=== PATIENT | male | born 1995 | race Caucasian/White ===

== ENCOUNTER 2019-01-08 20:27 | Emergency (ER) | payer BC ==
[2019-01-08] MEDS ORDERED: IBUPROFEN 800 MG TABLET PO ONE (21:08)
--- NOTE | 2019-01-08 21:10 | ER Document Report ---
ED Medical Screen (RME) - General Chief Complaint: Foot Injury Stated Complaint: FOOT INJURY Time Seen by Provider: 01/08/19 21:06 Primary Care Provider: PADMA GEIGER DO [Primary Care Provider] - Follow up as needed Mode of Arrival: Wheelchair Information source: Patient Notes: Patient presents emergency department with left foot pain. Patient reports he was working on his boat wearing shoes when he slipped and landed on his foot. Complains of pain with movement. Denies history of fracture to the foot. Patient has ecchymosis to his toes. Denies pain to the heel of his foot. Good pedal pulse good cap refill has not taken anything for pain I have greeted and performed a rapid initial assessment of this patient. A comprehensive ED assessment and evaluation of the patient, analysis of test results and completion of the medical decision making process will be conducted by additional ED providers. Dictation of this chart was performed using voice recognition software; therefore, there may be some unintended grammatical errors. Physical Exam - Vital signs Vitals: Temp Pulse Resp BP Pulse Ox 98.8 F 78 17 125/76 98 01/08/19 21:05 01/08/19 21:05 01/08/19 21:05 01/08/19 21:05 01/08/19 21:05 Course - Vital Signs Vital signs: Temp Pulse Resp BP Pulse Ox 98.8 F 78 17 125/76 98 01/08/19 21:05 01/08/19 21:05 01/08/19 21:05 01/08/19 21:05 01/08/19 21:05 Doctor's Discharge - Discharge Referrals: PADMA GEIGER DO [Primary Care Provider] - Follow up as needed
--- NOTE | 2019-01-08 22:04 | RADIOLOGY REPORT (SQ) ---
EXAM DESCRIPTION: Left foot RadLex: XR FOOT 3 OR MORE VIEWS Views: 3 CLINICAL HISTORY: 23 years Male, pain ecchymosis COMPARISON: None. FINDINGS: There is a subtle cortical offset in the distal head of the 1st proximal phalanx, indeterminate for fracture. Overall alignment remains anatomic. No additional cortical defects. No hyperdense foreign bodies. IMPRESSION: 1. Possible nondisplaced fracture of the distal head of the 1st proximal phalanx. Please correlate with location of clinical symptoms. 2. Otherwise unremarkable exam.
[2019-01-08] MEDS ORDERED: HYDROCODONE/ACETAMINOPHEN 5-325 MG (6 TAB/ER DISP) PO PRN (23:11)
--- NOTE | 2019-01-08 23:13 | ER Document Report ---
HPI - HPI Patient complains to provider of: Left foot injury Time Seen by Provider: 01/08/19 21:06 Onset: This afternoon Onset/Duration: Sudden Quality of pain: Achy Pain Level: 3 Context: Patient states that he was on a ladder and missed a step. Patient states that he slipped and fell about 4 feet striking the toes of his left foot when he fell. Patient was wearing tennis shoes at the time. Patient denies any other injury. Patient with bruising to the left first third and fourth toes. Associated Symptoms: Other - Left foot injury. denies: Nausea, Vomiting Exacerbated by: Movement, Walking Relieved by: Denies Similar symptoms previously: No Recently seen / treated by doctor: No - ROS ROS below otherwise negative: Yes Systems Reviewed and Negative: Yes All other systems reviewed and negative - GASTROINTESTINAL Gastrointestinal: DENIES: Nausea - MUSCULOSKELETAL Musculoskeletal: REPORTS: Extremity pain, Swelling - DERM Skin Color: Ecchymosis Past Medical History - General Information source: Patient - Social History Smoking Status: Never Smoker Frequency of alcohol use: Occasional Drug Abuse: None Occupation: [employer] Lives with: Family Family History: Reviewed & Not Pertinent Patient has suicidal ideation: No Patient has homicidal ideation: No - Medical History Medical History: Negative Renal/ Medical History: Denies: Hx Peritoneal Dialysis Past Surgical History: Reports: Hx Oral Surgery Vertical Provider Document - CONSTITUTIONAL Agree With Documented VS: Yes Exam Limitations: No Limitations General Appearance: WD/WN, No Apparent Distress - INFECTION CONTROL TRAVEL OUTSIDE OF THE [place] IN LAST 30 DAYS: No - HEENT HEENT: Atraumatic, Normocephalic - NECK Neck: Normal Inspection - RESPIRATORY Respiratory: No Respiratory Distress - CARDIOVASCULAR Pulses: Normal: Dorsalis pedis - MUSCULOSKELETAL/EXTREMETIES Musculoskeletal/Extremeties: MAEW, Tender - Left great toe tenderness with ecchymosis, ecchymosis to the third and fourth toes as well, no deformity, Edema, Eccymosis - NEURO Level of Consciousness: Awake, Alert, Appropriate Motor/Sensory: No Motor Deficit - DERM Integumentary: Warm, Dry Course - Vital Signs Vital signs: Temp Pulse Resp BP Pulse Ox 98.8 F 78 17 125/76 98 01/08/19 21:05 01/08/19 21:05 01/08/19 21:05 01/08/19 21:05 01/08/19 21:05 - Diagnostic Test Radiology reviewed: Image reviewed, Reports reviewed Procedures - Immobilization Left Foot Pre-Proc Neuro Vasc Exam: Normal Immobilizer type: Posterior ankle Performed by: PCT Post-Proc Neuro Vasc Exam: Normal Alignment checked and good: Yes Discharge - Discharge Clinical Impression: Fracture of left great toe Qualifiers: Encounter type: initial encounter Fracture type: closed Phalanx: proximal Fracture alignment: nondisplaced Qualified Code(s): S92.415A - Nondisplaced fracture of proximal phalanx of left great toe, initial encounter for closed fracture Condition: Stable Disposition: HOME, SELF-CARE Instructions: Use of Crutches ([facility]), Fracture ([facility]), Ice & Elevation ([facility]), Splint Precautions ([facility]) Additional Instructions: Return immediately for any new or worsening symptoms Followup with your primary care provider, call tomorrow to make a followup appointment Follow-up with orthopedics for further evaluation, call tomorrow for an appointment Prescriptions: Naproxen [Naprosyn 250 Nmg Tablet] 1 tab PO BID #14 tablet Referrals: PADMA GEIGER DO [ACTIVE STAFF] - Follow up as needed LIZET NINO JR, DO [ACTIVE PROVISIONAL STAFF] - Follow up as needed [facility] [Provider Group] - Follow up as needed
[2019-01-08 23:57] VITALS: BP 138/85
== END 2019-01-09 00:09 | disposition home or self-care (01) ==
LOC: ER 20:27
PROC: 2W3RX1Z Immobilization of Left Lower Leg using Splint (ICD-10-PCS; principal; 2019-01-08)
DX: S92.415A Nondisplaced fracture of proximal phalanx of left great toe, initial encounter for closed fracture (principal); S90.122A Contusion of left lesser toe(s) without damage to nail, initial encounter; M79.672 Pain in left foot; M79.89 Other specified soft tissue disorders; W11.XXXA Fall on and from ladder, initial encounter
CPT/HCPCS: 99283